=== PATIENT | male | born 1985 | race Caucasian/White ===

== ENCOUNTER 2016-07-31 14:52 | Emergency (ER) | payer MEDICAID, OTHER ==
[2016-07-31] MEDS ORDERED: NORCO 5/325 MG PO ONE (15:30)
[2016-07-31] MEDS ORDERED: NORCO 5/325 MG ONE (15:36)
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
[2016-07-31 16:24] VITALS: PULSE 80
[2016-07-31 16:38] VITALS: O2SAT 96
[2016-07-31 16:49] VITALS: BP 131/90
== END 2016-07-31 16:45 | disposition home or self-care (01) ==
LOC: ED 14:52
DX: S00.83XA Contusion of other part of head, initial encounter (principal); Y04.0XXA Assault by unarmed brawl or fight, initial encounter
CPT/HCPCS: 70486; 99283; A9270-GY

== ENCOUNTER 2017-10-18 23:22 | Emergency (ER) | payer MEDICAID, OTHER ==
[2017-10-18 23:46] VITALS: BP 114/73; PULSE 63; O2SAT 98
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
[2017-10-19] MEDS ORDERED: XYLOCAINE 2% HCL 20 ML MDV ONE (00:34)
[2017-10-19] MEDS ORDERED: TYLENOL 325 MG PO STA (01:23)
[2017-10-19] MEDS ORDERED: TYLENOL 325 MG ONE (01:25)
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
== END 2017-10-19 01:34 | disposition home or self-care (01) ==
LOC: ED 23:22
PROC: 0HQ0XZZ Repair Scalp Skin, External Approach (ICD-10-PCS; principal; 2017-10-19)
DX: S06.0X9A Concussion with loss of consciousness of unspecified duration, initial encounter (principal); S01.01XA Laceration without foreign body of scalp, initial encounter; Y04.0XXA Assault by unarmed brawl or fight, initial encounter; Y92.149 Unspecified place in prison as the place of occurrence of the external cause
CPT/HCPCS: 12001; 70450; 70486; 99283; A9270-GY

== ENCOUNTER 2017-10-31 01:35 | Observation (INO) | payer OTHER ==
[2017-10-31] MEDS ORDERED: Pepcid 20 MG VIAL IV ONE ×2 (01:39→01:55)
[2017-10-31] MEDS ORDERED: PROTONIX 40 MG IV IV ONE ×2 (01:39→01:55)
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
[2017-10-31 01:51] VITALS: O2SAT 98
[2017-10-31] MEDS ORDERED: Sodium Chloride 0.9% 1000 ML 1,000 ML ONE ×2 (01:56→02:46)
[2017-10-31] MEDS ORDERED: Nitrostat 0.4 MG (ED) SL ONE (01:57)
[2017-10-31] MEDS ORDERED: BABY ASPIRIN 81 MG CHEW PO ONE (01:57)
[2017-10-31] MEDS: Sodium Chloride 0.9% 1000 ML 1,000 ML IV SCH ×2 (02:00→02:48)
[2017-10-31 02:06] LABS: BASOPHIL % 0.2 % (0.0-0.4); Basophil (Absolute #) 0.01 (0-0.4); Eosinophil % 4.2 % (0.00-5.0); Eosinophil (Absolute #) 0.28 (0-0.5); Granulocyte Absolute (ANC) 3.77 (1.4-6.9); Hematocrit 42.3 % (42-50); Hemoglobin 14.1 gm/dl (12.5-18.0); Lymphocyte (Absolute #) 1.67 (1.0-4.6); Lymphocytes % 25.2 % (24.0-44.0); Mean Cell Volume 88.1 fl (78-100); Mean Corpuscular Hemoglobin 29.4 pg (26-32); Mean Corpuscular Hgb Concent. 33.3 g/dl (32-36); Mean Platelet Volume 11.1 fl (6-9.5); Monocyte (Absolute #) 0.89 (0.0-1.3); Monocytes % 13.4 % (0.0-12.0); Platelet Count 190 K/mm3 (150-450); Red Cell Distribution Width 13.8 % (11.5-14.0); White Blood Count 6.6 K/mm3 (4.0-10.5)
[2017-10-31] MEDS ORDERED: Sodium Chloride 0.9% 500 ML 500 ML IV ONE (02:14)
[2017-10-31 02:28] LABS: ALBUMIN 3.8 g/dL (3.5-5.0); ALKALINE PHOSPHATASE 73 U/L (38-126); AMYLASE 31 U/L (30-110); ANION GAP 12.2 MEQ/L (5-15); BLOOD UREA NITROGEN 18 mg/dL (9-20); CHLORIDE 105 mmol/L (98-107); Carbon Dioxide 27 mmol/L (22-30); Creatinine 1 0.78 mg/dL (0.66-1.25); Glucose 86 mg/dL (74-106); LIPASE 48 U/L (23-300); Potassium 3.9 mmol/L (3.5-5.1); SGOT/AST 202 U/L (17-59); SGPT/ALT 314 U/L (0-50); SODIUM 140 mmol/L (137-145); Total Protein 6.2 g/dL (6.3-8.2)
[2017-10-31 03:15] LABS: Appearance CLEAR (CLEAR); Bilirubin NEGATIVE (NEGATIVE); Blood NEGATIVE Ery/ul (0-5); Glucose NEGATIVE (NEGATIVE); Ketones NEGATIVE (NEGATIVE); Leukocyte Esterase NEGATIVE (NEGATIVE); Nitrite NEGATIVE (NEGATIVE); Protein,Urine Dip NEGATIVE (Negative); Urobilinogen NORMAL mg/dL (0-1)
[2017-10-31 03:48] VITALS: BP 104/68; PULSE 53
[2017-10-31] MEDS ORDERED: ULTRAM 50 MG PO PRN (04:35)
[2017-10-31] MEDS ORDERED: PHENERGAN 25 MG PO PRN (04:35)
[2017-10-31] MEDS ORDERED: MAALOX ES 30 ML UNIT DOSE PO PRN (04:35)
[2017-10-31] MEDS ORDERED: MILK OF MAGNESIA 30 ML PO PRN (04:35)
[2017-10-31] MEDS ORDERED: TYLENOL 325 MG PO PRN (04:35)
[2017-10-31] MEDS ORDERED: Zofran 4 MG/2 ML VIAL IV PRN (04:35)
[2017-10-31] MEDS ORDERED: Senokot-S Tablet PO PRN (04:35)
[2017-10-31] MEDS ORDERED: NovoLIN R SQ PRN (04:35)
--- NOTE | 2017-10-31 07:49 | XRAY ---
Indication: Chest pain. Comparison: None Portable apical lordotic chest demonstrates normal heart and lungs with a few incidental tiny calcified granulomas. Bony thorax intact.
[2017-10-31] MEDS ORDERED: Ecotrin 325 MG PO SCH (10:00)
[2017-10-31] MEDS ORDERED: Pepcid 20 MG VIAL IV SCH (10:00)
== END 2017-10-31 04:20 | disposition left against medical advice (07) ==
LOC: ED 01:35 → MED SURG 04:08
PROVIDERS: ADMIT Family Medicine; ATTEND Family Medicine
DX: R07.9 Chest pain, unspecified (principal)
CPT/HCPCS: 36415; 71045; 80053; 81002; 82150; 83605; 83690; 84484; 85025; 93005; 93041; 93268; 96360; 96361; 96374; 96375; 99285; G0378

== ENCOUNTER 2020-05-08 21:24 | Emergency (ER) | payer OTHER ==
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
[2020-05-08 22:08] LABS: Absolute Neutrophil Ct (ANC) 3.04 (1.4-6.9); BASOPHIL % 0.3 % (0.0-0.4); Basophil (Absolute #) 0.02 (0-0.4); Eosinophil % 4.3 % (0.00-5.0); Eosinophil (Absolute #) 0.29 (0-0.5); Hematocrit 39.8 % (42-50); Hemoglobin 12.6 gm/dl (12.5-18.0); Lymphocytes % 35.9 % (24.0-44.0); Mean Cell Volume 91.5 fl (78-100); Mean Corpuscular Hgb Concent. 31.7 g/dl (32-36); Mean Platelet Volume 10.6 fl (7.5-11.0); Monocyte (Absolute #) 0.94 (0.0-1.3); Monocytes % 14.1 % (0.0-12.0); Neutrophil % 45.4 % (36.0-66.0); Platelet Count 218 K/mm3 (150-450); Red Blood Count 4.35 M/mm3 (4.1-5.6); Red Cell Distribution Width 13.6 % (11.5-14.0); White Blood Count 6.7 K/mm3 (4.0-10.5)
[2020-05-08 22:12] LABS: Appearance SLIGHTLY CLOUDY (CLEAR); Bilirubin NEGATIVE (NEGATIVE); Blood NEGATIVE Ery/ul (0-5); Calcium Oxalate Crystals 26-50 /HPF (NEGATIVE); Glucose NEGATIVE (NEGATIVE); Ketones NEGATIVE (NEGATIVE); Leukocyte Esterase NEGATIVE (NEGATIVE); Mucus SLIGHT /HPF (NEGATIVE); Nitrite NEGATIVE (NEGATIVE); Protein,Urine Dip NEGATIVE (Negative); Specific Gravity 1.025 (1.005-1.025); Urobilinogen 4 mg/dL (0-1)
[2020-05-08 22:13] LABS: Bacteria NONE SEEN /HPF (NEGATIVE); RBC NONE SEEN /HPF (0-2)
[2020-05-08 22:19] LABS: ACETAMINOPHEN < 10 ug/ml (10-30); ALBUMIN 3.6 g/dL (3.5-5.0); ALKALINE PHOSPHATASE 58 U/L (38-126); ANION GAP 9.8 MEQ/L (5-15); BLOOD UREA NITROGEN 11 mg/dL (9-20); CHLORIDE 104 mmol/L (98-107); Calcium 8.7 mg/dL (8.4-10.2); Carbon Dioxide 26 mmol/L (22-30); Creatinine 1 0.78 mg/dL (0.66-1.25); EST GLOMERULAR FILTRATION RATE > 60.0 ML/MIN; ETHYL ALCOHOL < 10 mg/dL (0-10); Glucose 165 mg/dL (74-106); Potassium 3.1 mmol/L (3.5-5.1); SALICYLATE < 1.0 mg/dL (2-20); SGOT/AST 47 U/L (17-59); SGPT/ALT 88 U/L (0-50); SODIUM 136 mmol/L (137-145); Total Protein 6.3 g/dL (6.3-8.2)
[2020-05-08 22:24] LABS: Barbiturate,Urine NEGATIVE (NEGATIVE); Benzodiazepine,Urine NEGATIVE (NEGATIVE); Cocaine,Urine NEGATIVE (NEGATIVE); Methadone,Urine NEGATIVE (NEGATIVE); Opiate,Urine NEGATIVE (NEGATIVE); PCP,Urine NEGATIVE (NEGATIVE); THC,Urine POSITIVE (NEGATIVE)
[2020-05-08 22:35] VITALS: O2SAT 97
[2020-05-08 22:48] LABS: Amphetamine,Urine POSITIVE (NEGATIVE)
[2020-05-08] MEDS ORDERED: TYLENOL 325 MG PO ONE (22:53)
[2020-05-08] MEDS ORDERED: TYLENOL 325 MG ONE (22:56)
[2020-05-08 23:02] VITALS: BP 126/90; PULSE 75
--- NOTE | 2020-05-09 08:50 | XRAY ---
Indication: Right pain/abrasion following head injury. Multiple contiguous images obtained through the head without contrast. Comparison: October 18, 2017. Ventriculosulcal pattern appears symmetric. Again chronic 1 cm bilateral basal ganglia round cystic lesions. No acute intracranial hemorrhage, abnormal extra-axial fluid collection, or mass effect. Fourth ventricle is midline without hydrocephalus. Rivera-white matter differentiation preserved. Bony calvarium intact. Visualized paranasal sinuses and mastoid air cells are clear. Impression: Continued nonacute CT head without contrast exam with chronic feature. Comment: Preliminary interpretation was made by [facility]. No critical discrepancy.
== END 2020-05-08 23:05 | disposition home or self-care (01) ==
LOC: ED 21:24
DX: F15.10 Other stimulant abuse, uncomplicated (principal); R53.83 Other fatigue
CPT/HCPCS: 36415; 70450; 80053; 80307; 81001; 85025; 99284; G0480; A9270-GY